=== PATIENT | female | born 1970 | race Caucasian/White ===

== ENCOUNTER → 2016-08-18 | Outpatient (CLI) | payer BC ==
[2016-08-18 10:10] VITALS: BP 132/84; PULSE 70; RESP 20; TEMP 98.5; BMI 43.4
[2016-08-18 11:20] LABS: CH 31.5; CHCM 32.9; HCT 44.6 % (34.0-46.0); HDW 2.27; HGB 14.6 gm/dL (11.4-16.0); MCH 31.5 pg (25.0-35.0); MCHC 32.7 g/dL (31.0-37.0); MCV 96.3 fL (80.0-100.0); Mean Platelet Volume 6.9; RBC 4.63 m/uL (3.80-5.40); RDW 13.2 % (11.5-15.5); WBC 8.2 k/uL (3.8-10.6)
[2016-08-18 11:42] LABS: ALT 31 U/L (9-52); AST 20 U/L (14-36); Alkaline Phosphatase 66 U/L (38-126); Anion Gap 12 mmol/L; Blood Urea Nitrogen 17 mg/dL (7-17); Calcium 9.2 mg/dL (8.4-10.2); Carbon Dioxide 21 mmol/L (22-30); Chloride 107 mmol/L (98-107); Cholesterol 178 mg/dL (<200); Glucose 93 mg/dL (74-99); HDL Cholesterol 56 mg/dL (40-60); Iron 66 ug/dL (37-170); Non-African American GFR(MDRD) >60 (>60 ml/min/1.73 sqM); Potassium 4.7 mmol/L (3.5-5.1); Sodium 140 mmol/L (137-145); Total Bilirubin 0.5 mg/dL (0.2-1.3); Total Protein 7.2 g/dL (6.3-8.2); Triglycerides 170 mg/dL (<150)
[2016-08-18 11:54] LABS: % Iron Saturation 18.2 % (20-50); Total Iron Binding Capacity 362 ug/dL (265-497)
[2016-08-18 12:44] LABS: Vitamin B12 517 pg/mL (239-931)
[2016-08-18 13:17] LABS: Hemoglobin A1C 5.4 % (4.2-6.1)
[2016-08-22 06:05] LABS: Anabasine Urine <2.0 ng/mL (<2.0)
--- NOTE | 2016-09-23 20:42 | P.PN ---
Progress Note - Text DATE OF CONSULTATION: 08/18/2016 CHIEF COMPLAINT: Initial bariatric assessment. HISTORY OF PRESENT ILLNESS: Shabnam Rea is a 45-year-old female who presents for initial bariatric assessment. She reports a family history of morbid obesity whereby her sister actually had a gastric bypass and did extremely well. She reports heartburn for which she takes Zantac at least twice daily. She tried weight loss options including Adipex, Garcinia, [id number] medications including low gregg restriction diets with minimal success. The most she has been able to lose is 20 pounds. Her highest personal weight is 305 pounds. Her goal weight is 130 pounds. Her primary concern ideally is to get under 200 pounds. She denies any family history of esophageal or stomach cancer. No reports of lupus or Crohn's disease. She does have a food allergy for which she sees an town clerk. She has obstructive sleep apnea which has been treated. She denies any active issues known to her in terms of diabetes. She denies any troubles with swallowing. The last time she had an upper endoscopy was many years ago. She has occasional constipation including diarrhea. Denies any blood clots in self or family. She denies any abdominal pain. She has a history of active smoking. Secondary to her morbid obesity she has developed osteoarthritis of the left knee including the lower back. She also reports menstrual irregularity. Now she presents for further evaluation and management. PAST MEDICAL HISTORY: 1. Morbid obesity. 2. Osteoarthritis of the knees. 3. Osteoarthritis of the hips. 4. Obstructive sleep apnea. 5. Asthma. 6. Gastroesophageal reflux disease. PAST SURGICAL HISTORY: 1. . 2. Cholecystectomy. 3. Upper endoscopy. MEDICATIONS: 1. Benadryl. 2. Avapro. 3. Melatonin. 4. Advair disk. 5. Singulair. 6. Ventolin inhaler. ALLERGIES: VANCOMYCIN gives her a rash and hives. SOCIAL HISTORY: She is an active smoker. FAMILY HISTORY: Pertinent for morbid obesity. No reports of ulcerative colitis, Crohn's disease, lupus or stomach or esophageal cancer. REVIEW OF SYSTEMS: CONSTITUTIONAL: [place] body weight of 144 pounds. For a height of 5 feet 4-3/4 she comes in weighing 259 pounds. Her highest weight was 305 pounds. She is 115 pounds overweight. Body mass index has been reduced from 51.3 down to 43.5. HEENT: Denies any troubles with vision or hearing. No reports of active dysphagia. ENDOCRINE: No reports of diabetes or thyroid disorder. CARDIOVASCULAR: No reports of recent chest pain, palpitations or heart attack. RESPIRATORY: Has obstructive sleep apnea. No reports of pulmonary embolism or pneumonia. GASTROINTESTINAL: Has gastroesophageal reflux disease. Denies diarrhea, constipation. MUSCULOSKELETAL: Osteoarthritis of the lower back including bilateral hips and knees. NEURO: No reports of stroke or seizure disorders. PSYCH: No reports of suicidal ideation. No reports of depression. HEMATOLOGIC: Denies any easy bruising or bleeding. PHYSICAL EXAM: VITAL SIGNS: 98.5, 70, 20, 132/84, 5 foot 4 3/4 inch, 259 pounds. Body mass index 43.5. GENERAL: Well-developed, pleasant female in no acute distress. HEENT: No sclerae icterus. Extraocular movements grossly intact. Moist buccal mucosa. NECK: Supple without lymphadenopathy. CHEST: Nonlabored respirations with equal breath excursions. CARDIOVASCULAR: Regular rate and rhythm. ABDOMEN: Protuberant, soft, nontender, nondistended. MUSCULOSKELETAL: No clubbing, cyanosis, or edema. NEURO: No focal or lateralizing signs. Cranial nerves II through XII grossly within normal limits. PSYCH: Appropriate affect. Alert and oriented to person, place, and time. LABS: Hemoglobin normal at 14.6. Carbon dioxide low at 21. Creatinine normal. Hemoglobin A1c normal at 5.4%. Percent iron saturation is low at 18.2%. Triglycerides elevated at 170. Vitamin D is low at 18.4. ASSESSMENT: 1. Morbid obesity due to excess calories. 2. Body mass index reduced and 51.3 down to 43.5. 3. Dietary surveillance and counseling. 4. Gastroesophageal reflux disease. 5. Family history of morbid obesity. 6. Osteoarthritis of the left knee. 7. Osteoarthritis of the lower back. 8. Obstructive sleep apnea, untreated. 9. Multiple food allergies. 10. Vitamin D deficiency. 11. Hypertriglyceridemia. PLAN: 1. She has untreated obstructive sleep apnea for which evaluation by the sleep center is advisable. 2. Per insurance guidelines, we had reviewed that she will need a 6 month medical supervised weight loss. 3. She is an active smoker and smoking cessation counseling was reviewed for at least 3 minutes. Alternatives such as patches and gums may be of benefit; however, she will need complete nicotine abstinence. 4. She has completed bariatric metabolic panel. 5. Vitamin D correction using 50,000 units weekly dose. 6. An upper endoscopy for further evaluation and management is needed for her reflux disease. 7. Psych assessment per insurance guidelines. 8. Medical risk assessment per insurance guidelines. 9. Will also need EKG given the risk of the procedure. Thank you for this kind consultation.
== END | disposition home or self-care (01) ==
LOC: BARWHC3 09:30
PROVIDERS: ATTEND Surgery Plastic and Reconstructive Surgery
DX: Z01.818 Encounter for other preprocedural examination (principal); E66.01 Morbid (severe) obesity due to excess calories; Z68.41 Body mass index [BMI] 40.0-44.9, adult; K21.9 Gastro-esophageal reflux disease without esophagitis; M17.12 Unilateral primary osteoarthritis, left knee; M47.896 Other spondylosis, lumbar region; Z88.1 Allergy status to other antibiotic agents; F17.200 Nicotine dependence, unspecified, uncomplicated; Z91.02 Food additives allergy status; E55.9 Vitamin D deficiency, unspecified; E78.1 Pure hyperglyceridemia
CPT/HCPCS: 36415; 80053; 80061; 80323; 82306; 82607; 82728; 82746; 83036; 83540; 83550; 84425; 84443; 85027; 99201

== ENCOUNTER → 2016-09-13 | Outpatient (CLI) | payer BC ==
--- NOTE | 2016-09-13 21:13 | CONS ---
DATE OF CONSULTATION: REASON FOR CONSULTATION: Sleep apnea. This patient is a 45-year-old obese female patient who is having trouble sleeping, with excessive tiredness and sleepiness during the day. She goes to bed around midnight and it sometimes takes her up to 2 hours to fall asleep, and she has to get up at 6:40 a.m. in the morning to drive her kids to school. She does not take any naps during the day, although she feels very tired and sleepy. 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 On weekdays she gets off work between 3 and 6 p.m. On weekends she gets off work between 10 and 11 p.m. She is obese. She is trying to lose weight. She has already lost around 50 pounds; however, she is interested in bariatric surgery and she is under the care of Dr. Chica Reeves. Her blood pressure is noted to be elevated. She snores, but she has not been told that she stops breathing. She occasionally sleeptalks. She wakes up with a dry mouth. No grinding of the teeth. No nocturia. No restlessness in her lower extremities. Current Baldwin score is 16. PAST MEDICAL HISTORY: 1. Obesity. 2. Hypertension. 3. Bronchial asthma. 4. Environmental allergies. 5. Osteoarthritis. PAST SURGICAL HISTORY: None. DRUG ALLERGIES: VANCOMYCIN. Outpatient medication list includes: 1. Ailin-D. 2. Singulair. 3. Advair. 4. Motrin. 5. Benadryl. 6. Flonase. 7. Melatonin. 8. Tylenol. SOCIAL HISTORY: The patient is a nonsmoker. No history of alcoholism. No history of IV drugs. OCCUPATIONAL HISTORY: Works for [employer]. FAMILY HISTORY: Positive for hypertension and heart problems. Negative for any sleep breathing disorder. REVIEW OF SYSTEMS: Twelve-point review of systems was done. Positive findings were all mentioned above in the history of present illness. Of significance is the absence of any anxiety, panic, depression, heartburn, teeth grinding, nocturnal seizures. No nocturnal chest pain, shortness of breath or any other complaints. BP is 153/100, pulse 76, respiration 16. Temperature is 98.1. Saturation is 97% on room air. Weight is 258. Height is 5 feet 5 inches. BMI is 42.9. GENERAL APPEARANCE: Calm, comfortable. HEENT: Negative for JVD. No goiter or neck masses. Mallampati class I. LUNGS: Clear to auscultation. HEART: Sounds are regular rate and rhythm. Normal S1, S2. No S3. No S4. No murmurs. ABDOMEN: Soft, nontender. No organomegaly. EXTREMITIES: No edema. No cyanosis or clubbing. IMPRESSION: 1. Obstructive sleep apnea suspected, under investigation. My overall suspicion is quite low. In fact, I think there may be a component of insomnia in this patient. 2. Obesity; body mass index of 42.9. 3. Hypertension. 4. Bronchial asthma. 5. Environmental allergies. 6. Osteoarthritis. PLAN: 1. Implement good sleep hygiene measures. 2. Encourage further weight loss. 3. Proceed with a screening polysomnogram, looking for obstructive sleep apnea. 4. Note that the patient's blood pressure is quite elevated. I asked her to stop the Ailin-D and use plain Ailin if possible; and contact primary care physician for tighter blood pressure control. 5. Will continue following the patient after the sleep study and make further recommendations based on her progress.
== END | disposition home or self-care (01) ==
LOC: SLEEP 13:01
PROVIDERS: ATTEND Internal Medicine Critical Care Medicine
DX: G47.30 Sleep apnea, unspecified (principal); I10 Essential (primary) hypertension; E66.9 Obesity, unspecified; J45.909 Unspecified asthma, uncomplicated; M19.90 Unspecified osteoarthritis, unspecified site; Z68.41 Body mass index [BMI] 40.0-44.9, adult; Z88.8 Allergy status to other drugs, medicaments and biological substances; Z79.51 Long term (current) use of inhaled steroids; Z79.1 Long term (current) use of non-steroidal anti-inflammatories (NSAID); Z79.899 Other long term (current) drug therapy
CPT/HCPCS: 99211

== ENCOUNTER 2016-09-14 08:34 | Day surgery (SDC) | payer BC ==
[2016-09-12 11:13] VITALS: BMI 42.4
--- NOTE | 2016-09-14 07:55 | P.GSHP ---
History of Present Illness H&P Date: 09/14/16 CHIEF COMPLAINT: GERD HISTORY OF PRESENT ILLNESS: The patient is a 45-year-old female who presents reports gastroesophageal reflux disease. Upper endoscopy was offered for further evaluation and management. PAST MEDICAL HISTORY: Please see list. PAST SURGICAL HISTORY: Please see list. MEDICATIONS: Please see list. ALLERGIES: Please see list. SOCIAL HISTORY: No illicit drug use FAMILY HISTORY: No reports of Crohn disease or ulcerative colitis. REVIEW OF ORGAN SYSTEMS: CONSTITUTIONAL: No reports of fevers or chills. GI: Denies any blood in stools or constipation. PHYSICAL EXAM: VITAL SIGNS: Stable GENERAL: Well-developed and pleasant in no acute distress. HEENT: No scleral icterus. Extraocular movements grossly intact. Moist buccal mucosa. NECK: Supple without lymphadenopathy. CHEST: Unlabored respirations. Equal bilateral excursions. CARDIOVASCULAR: Regular rate and rhythm. Distal 2+ pulses. ABDOMEN: Soft, nondistended. MUSCULOSKELETAL: No clubbing, cyanosis, or edema. ASSESSMENT: 1. Gastroesophageal reflux disease PLAN: 1. Recommend proceeding with an upper endoscopy Past Medical History Past Medical History: Asthma, GERD/Reflux, Hypertension, Skin Disorder Additional Past Medical History / Comment(s): hx ulcers, constipation, arthritis , psoriasis, History of Any Multi-Drug Resistant Organisms: Unobtainable Past Surgical History: Section, Cholecystectomy Past Anesthesia/Blood Transfusion Reactions: Motion Sickness Past Psychological History: No Psychological Hx Reported Smoking Status: Current every day smoker Past Alcohol Use History: Occasional Additional Past Alcohol Use History / Comment(s): has smoked occationally 16 yrs , started smoking age 17, smoked regularly for about 8 yrs Past Drug Use History: None Reported - Past Family History Mother Family Medical History: No Reported History Medications and Allergies Home Medications Medication Instructions Recorded Confirmed Type Albuterol Inhaler [Ventolin Hfa 1 puff INHALATION DIRECTED 08/18/16 09/12/16 History Inhaler] Ibuprofen [Advil] 200 mg PO DIRECTED PRN 08/18/16 09/12/16 History Montelukast [Singulair] 1 tab PO DAILY 08/18/16 09/12/16 History diphenhydrAMINE [Benadryl] 25 mg PO HS 08/18/16 09/12/16 History Advair Disk(Dose Unknown) 1 applicate IH BID PRN 09/12/16 09/12/16 History Fexofenadine/Pseudoephedrine 1 each PO DAILY 09/12/16 09/12/16 History [Ailin-D 12 Hour Tablet] Allergies Allergy/AdvReac Type Severity Reaction Status Date / Time vancomycin Allergy Severe Rash/Hives Unverified 09/12/16 11:03
[~2016-09-14 08:34] MED LIST: LACTATED RINGERS 1,000 ML IV SCH; LIDOCAINE 1% 20 ML VIAL (10MG/ML) FOR IV START INTRADERMA PRN
[2016-09-14 08:55] VITALS: RESP 18; TEMP 98.1
[2016-09-14] MEDS ORDERED: PROPOFOL 10 MG/ML 20 ML VIAL IV ONE (09:30)
[2016-09-14] MEDS ORDERED: LIDOCAINE 1% INJ 10MG/ML (20 ML MDV) ONE (09:30)
--- NOTE | 2016-09-14 09:53 | P.PCN ---
Date of Procedure: 09/14/16 Description of Procedure: PREOPERATIVE DIAGNOSIS: Gastroesophageal reflux disease. POSTOPERATIVE DIAGNOSIS: Gastroesophageal reflux disease. Chronic gastritis OPERATION: Esophagogastroduodenoscopy with biopsies along antrum. SURGEON: Chica Reeves MD ANESTHESIA: MAC. INDICATIONS: The patient is a 45-year-old female who presents with a history of gastroesophageal reflux disease. Benefits and risks of the procedure were described. Informed consent was obtained. DESCRIPTION: The patient was brought into the endoscopy suite and laid in the left lateral decubitus position. An Olympus gastroscope was passed along the posterior oropharynx down to the distal esophagus where the squamocolumnar junction was encountered at 37 cm from the incisors. The stomach was entered and minimal bile reflux was found. Additional findings are listed below. Biopsies with cold forceps were obtained of the antrum. The first through third portion of the duodenum was examined and unremarkable. Retroflexion of the scope confirmed Hill grade 3 lower esophageal valve. The squamocolumnar junction demostrated mild LA grade A erosive esophagitis. The stomach was desufflated. The patient tolerated the procedure well. FINDINGS: Squamocolumnar junction 37 cm from the incisors. Diaphragmatic hiatus at 37 cm from the incisors Hill grade 3 lower esophageal valve. Chronic gastritis along the antrum. No active duodenitis. RECOMMENDATIONS: Further recommendations pending results of pathology report. Upper endoscopy as needed. Plan - Discharge Summary Discharge Medication List Albuterol Inhaler [Ventolin Hfa Inhaler] 1 puff INHALATION DIRECTED 08/18/16 [History] Ibuprofen [Advil] 200 mg PO DIRECTED PRN 08/18/16 [History] Montelukast [Singulair] 1 tab PO DAILY 08/18/16 [History] diphenhydrAMINE [Benadryl] 25 mg PO HS 08/18/16 [History] Advair Disk(Dose Unknown) 1 applicate IH BID PRN 09/12/16 [History] Fexofenadine/Pseudoephedrine [Ailin-D 12 Hour Tablet] 1 each PO DAILY [History]
[2016-09-14 09:59] VITALS: BP 153/94; PULSE 66
== END 2016-09-14 10:18 | disposition home or self-care (01) ==
LOC: ORWHC2ENDO 08:34
PROVIDERS: ATTEND Surgery Plastic and Reconstructive Surgery
DX: K29.50 Unspecified chronic gastritis without bleeding (principal); K22.10 Ulcer of esophagus without bleeding; I10 Essential (primary) hypertension; F17.200 Nicotine dependence, unspecified, uncomplicated; E66.01 Morbid (severe) obesity due to excess calories; Z68.41 Body mass index [BMI] 40.0-44.9, adult; J45.909 Unspecified asthma, uncomplicated; Z79.899 Other long term (current) drug therapy; Z88.1 Allergy status to other antibiotic agents
CPT/HCPCS: 88305; 88342; 43239; J2001; J2704

== ENCOUNTER → 2022-03-09 | Outpatient (CLI) | payer BC | END | disposition home or self-care (01) | LOC: LABWHC1 11:35 | PROVIDERS: ATTEND Orthopaedic Surgery | DX: M17.0 Bilateral primary osteoarthritis of knee (principal); M21.161 Varus deformity, not elsewhere classified, right knee; M21.162 Varus deformity, not elsewhere classified, left knee | CPT/HCPCS: 36415 ==

== ENCOUNTER → 2023-05-26 | Outpatient (CLI) | payer BC ==
--- NOTE | 2023-05-26 09:17 | CTL ---
EXAMINATION TYPE: CT Low Dose Lung DATE OF EXAM ORDERED: 05/26/2023 HISTORY: Long-term tobacco use. Lung cancer screening CT DLP: 130.[address] CTDI: 3.5 mGy Automated exposure control for dose reduction was used. SCREENING VISIT: Baseline COMPARISON: None TECHNIQUE: Low dose computed tomography scan was performed through the chest at 1 mm thick sections a nd reconstructed images in multiple planes at 1 mm and [address] DIAGNOSTIC QUALITY: Satisfactory FINDINGS: LUNG NODULES: None. LUNGS: COPD: Severity: None Fibrosis: Severity: None Lymph nodes: None Other findings: None RIGHT PLEURAL SPACE: Effusion: None Calcification: None Thickening: None Pneumothorax: None LEFT PLEURAL SPACE: Effusion: None Calcification: None Thickening: None Pneumothorax: None HEART: Heart Size: Normal Coronary Calcification: Tiny Pericardial Effusion: None OTHER FINDINGS: Upper abdomen: Cholecystectomy clips are present. A few colonic diverticula near the splenic flexure are seen. Bony thorax: Mild multilevel spurring Supraclavicular region: None Other: None IMPRESSION: No suspicious nodules CT LUNG RAD AND CT CHEST RECOMMENDATION: Lung-Rad 1 Negative: Continue annual screening with LDCT in 12 months. S Modifier (other clinically significant findings): None
== END | disposition home or self-care (01) ==
LOC: RADCTMAIN 08:10
PROVIDERS: ATTEND Family Medicine
DX: Z12.2 Encounter for screening for malignant neoplasm of respiratory organs (principal); Z87.891 Personal history of nicotine dependence
CPT/HCPCS: 71271

== ENCOUNTER 2024-11-01 19:45 | Emergency (ER) | payer BC ==
--- NOTE | 2024-11-01 20:08 | ED ---
Upper Extremity HPI - General Source: patient, RN notes reviewed Mode of arrival: ambulatory Limitations: no limitations <Harvey Birmingham - Last Filed: 11/01/24 20:06> <Fitz Kelley - Last Filed: 11/04/24 20:19> - General Stated Complaint: Fall, right shoulder pain Time Seen by Provider: 11/01/24 20:03 - History of Present Illness Initial Comments: Quick note: This is a 53-year-old female presenting for right shoulder injury following a fall occurring around 1900 this evening. Patient states she was running in the rain when she suffered a trip and fall, striking her right shoulder against a toy on the ground and also scraping her left knee. Patient denies striking head, loss of consciousness, headache, neck pain. Patient states pain is diffuse across right upper extremity, chest and back. Patient denies increased pain with inhalation or dyspnea. Endorses use of Tylenol and naproxen prior to arrival with good pain control at this time. (Harvey Birmingham) 53-year-old female presenting chief complaint of right shoulder injury. She fell onto a toy on the ground hitting her right shoulder. She also scraped her left knee. Last tetanus was 10 years ago. No head injury. She admits to pain in the shoulder that is worse with range of motion. (Fitz Kelley) - Related Data Home Medications Medication Instructions Recorded Confirmed Albuterol Inhaler [Ventolin Hfa 1 puff INHALATION DIRECTED 08/18/16 09/12/16 Inhaler] Ibuprofen [Advil] 200 mg PO DIRECTED PRN 08/18/16 09/12/16 Montelukast [Singulair] 1 tab PO DAILY 08/18/16 09/12/16 diphenhydrAMINE [Benadryl] 25 mg PO HS 08/18/16 09/12/16 Advair Disk(Dose Unknown) 1 applicate IH BID PRN 09/12/16 09/12/16 Fexofenadine/Pseudoephedrine 1 each PO DAILY 09/12/16 09/12/16 [Ailin-D 12 Hour Tablet] Allergies Allergy/AdvReac Type Severity Reaction Status Date / Time vancomycin Allergy Severe Rash/Hives Verified 11/01/24 20:43 Review of Systems ROS Other: All systems not noted in ROS Statement are negative. <Harvey Birmingham - Last Filed: 11/01/24 20:06> ROS Other: All systems not noted in ROS Statement are negative. <WarrenDonavonscott - Last Filed: 11/04/24 20:19> ROS Statement: Those systems with pertinent positive or pertinent negative responses have been documented in the HPI. Past Medical History Past Medical History: Asthma, GERD/Reflux, Hypertension, Skin Disorder Additional Past Medical History / Comment(s): hx ulcers, constipation, arthritis, psoriasis, History of Any Multi-Drug Resistant Organisms: Unobtainable Past Surgical History: Section, Cholecystectomy Past Anesthesia/Blood Transfusion Reactions: Motion Sickness Past Psychological History: No Psychological Hx Reported Past Alcohol Use History: Occasional Additional Past Alcohol Use History / Comment(s): has smoked occationally 16 yrs, started smoking age 17, smoked regularly for about 8 yrs Past Drug Use History: None Reported - Past Family History Mother Family Medical History: No Reported History <Harvey Birmingham - Last Filed: 11/01/24 20:06> General Exam <Harvey Birmingham - Last Filed: 11/01/24 20:06> Limitations: no limitations General appearance: alert, in no apparent distress Head exam: Present: atraumatic, normocephalic, normal inspection Eye exam: Present: normal appearance, EOMI Neck exam: Present: normal inspection. Absent: meningismus Respiratory exam: Absent: respiratory distress, stridor Cardiovascular Exam: Present: regular rate Right Shoulder Exam: Present: normal inspection, tenderness. Absent: full ROM Vascular: Absent: vascular compromise Neurological exam: Present: alert, oriented X3 Psychiatric exam: Present: normal affect, normal mood Skin exam: Present: warm, dry, normal color <KelleyDonavonscott - Last Filed: 11/04/24 20:19> - General Exam Comments Initial Comments: Visual Physical Exam Vital signs reviewed General: Well-appearing, nontoxic, no acute distress. Head: Normocephalic, atraumatic Eyes: PERRLA, EOMI ENT: Airway patent Chest: Nonlabored breathing Skin: No visual rash, normal skin tone Neuro: Alert and oriented 3 Musculoskeletal: Patient RUE in sling with abrasion and ecchymosis noted over right lateral shoulder. Road rash/abrasion noted on left knee without ecchymosis or foreign body (Harvey Birmingham) Course Vital Signs 11/01/24 11/01/24 20:40 21:40 Temperature 97.7 F 98.0 F Pulse Rate 67 63 Respiratory 16 16 Rate Blood Pressure 166/96 138/86 O2 Sat by Pulse 99 96 Oximetry Medical Decision Making <ValenciaHarvey - Last Filed: 11/01/24 20:06> <Fitz Kelley - Last Filed: 11/04/24 20:19> - Medical Decision Making I completed the quick note portion of this chart signed KISHOR Mora (Harvey Birmingham) Was pt. sent in by a medical professional or institution ([facility], [facility], urgent care, hospital, or prison...) When possible be specific @ -No Did you speak to anyone other than the patient for history (EMS, parent, family, police, friend...)? What history was obtained from this source @ -No Did you review nursing and triage notes (agree or disagree)? Why? @ -I reviewed and agree with nursing and triage notes Were old charts reviewed (outside hosp., previous admission, EMS record, old EKG, old radiological studies, urgent care reports/EKG's, prison records)? Report findings @ -No old charts were reviewed Differential Diagnosis (chest pain, altered mental status, abdominal pain women, abdominal pain men, vaginal bleeding, weakness, fever, dyspnea, syncope, headache, dizziness, GI bleed, back pain, seizure, CVA, palpatations, mental health, musculoskeletal)? @ -Differential Musculoskeletal Muscular strain, contusion, ligament sprain, fracture, arthritis, septic arthritis, bursitis, cellulitis, muscle spasm, nerve compression, DVT, arterial occlusion, herpes zoster, electrolyte abnormality, tumor.... This is not meant to be in all inclusive list EKG interpreted by me (3pts min.). @ -As above X-rays interpreted by me (1pt min.). @ -X-ray negative for fracture or dislocation CT interpreted by me (1pt min.). @ -None done U/S interpreted by me (1pt. min.). @ -None done What testing was considered but not performed or refused? (CT, X-rays, U/S, labs)? Why? @ -None What meds were considered but not given or refused? Why? @ -None Did you discuss the management of the patient with other professionals (professionals i.e. DrAura, PA, [facility], lab, RT, psych nurse, social work manager, tdp displays analyst, teacher, medical information officer, case assembler)? Give summary @ -No Was smoking cessation discussed for >3mins.? @ -No Was critical care preformed (if so, how long)? @ -No Were there social determinants of health that impacted care today? How? (Homelessness, low income, unemployed, alcoholism, drug addiction, transportation, low edu. Level, literacy, decrease access to med. care, fpc, r ehab)? @ -No Was there de-escalation of care discussed even if they declined (Discuss DNR or withdrawal of care, Hospice)? DNR status @ -No What co-morbidities impacted this encounter? (DM, HTN, Smoking, COPD, CAD, Cancer, CVA, ARF, Chemo, Hep., AIDS, mental health diagnosis, sleep apnea, morbid obesity)? @ -None Was patient admitted / discharged? Hospital course, mention meds given and route, prescriptions, significant lab abnormalities, going to OR and other pertinent info. @ -53-year-old female presenting with chief complaint of right shoulder injury. Neurovascularly intact. Tetanus is updated. X-ray negative for fracture or dislocation. Patient has a sling from home that she will continue using. She is educated on supportive management at home. Provided with orthopedic follow- up. Follow-up with PCP. Report back to ER with any new or worsening symptoms. Discussed return parameters and answered all questions. Patient conveyed verbal understanding and agreed to the plan. I discussed this case in detail with my attending Dr. Vargas Undiagnosed new problem with uncertain prognosis? @ -No Drug Therapy requiring intensive monitoring for toxicity (Heparin, Nitro, Insu dexter, Cardizem)? @ -No Were any procedures done? @ -No Diagnosis/symptom? @ -Shoulder sprain Acute, or Chronic, or Acute on Chronic? @ -Acute Uncomplicated (without systemic symptoms) or Complicated (systemic symptoms)? @ -Uncomplicated Side effects of treatment? @ -No Exacerbation, Progression, or Severe Exacerbation? @ -No Poses a threat to life or bodily function? How? (Chest pain, USA, DC, pneumonia, PE, COPD, DKA, ARF, appy, cholecystitis, CVA, Diverticulitis, Homicidal, Suicidal, threat to staff... and all critical care pts) @ -Unlikely (Fitz Kelley) Disposition <Harvey Birmingham - Last Filed: 11/01/24 20:06> Is patient prescribed a controlled substance at d/c from ED?: No Time of Disposition: 21:29 <Fitz Kelley - Last Filed: 11/04/24 20:19> Clinical Impression: Shoulder injury Disposition: HOME SELF-CARE Condition: Good Instructions (If sedation given, give patient instructions): Shoulder Sprain (ED), Shoulder Pain (ED) Additional Instructions: Follow-up with PCP. Report back to ER with any new or worsening symptoms. Utilize the sling while recovering. Motrin Tylenol as needed for pain. Referrals: Genna Yanez MD [Primary Care Provider] - 1-2 days Amilcar Leyva MD [Medical Doctor] - 1-2 days
[2024-11-01 20:43] VITALS: RESP 16
--- NOTE | 2024-11-01 20:51 | XR ---
EXAMINATION TYPE: XR shoulder complete RT, XR scapula RT, XR humerus RT DATE OF EXAM: 11/01/2024 8:44 PM COMPARISON: None. CLINICAL INDICATION: Female, 53 years old with history of Fall onto right shoulder; PHH, pain TECHNIQUE: XR shoulder complete RT, XR scapula RT, XR humerus RT; examined in AP, internally rotated and scapular Y projections. FINDINGS: Soft tissue swelling/edema adjacent to the right shoulder. No acute fracture or dislocation. Scleroti c changes near the greater tuberosity likely reflecting sequelae of chronic rotator cuff pathology. P artially visualized right lung appears clear. Moderate degenerative osteophytic changes of the acromi oclavicular joint and mild glenohumeral joint degenerative osteoarthritis. IMPRESSION: No acute fracture or dislocation. [facility], , 11/01/2024 8:49 PM
[2024-11-01] MEDS: DIPH,PERTUS(ACELL)TETVAC-LF 0.5 ML VIAL IM ONE (21:22)
[2024-11-01] MEDS: BACITRACIN OINT 1 EACH PACKET TOPICAL ONE (21:40)
[2024-11-01 21:44] VITALS: BP 138/86; PULSE 63; TEMP 98
== END 2024-11-01 21:51 | disposition home or self-care (01) ==
LOC: EC 19:45
DX: S43.401A Unspecified sprain of right shoulder joint, initial encounter (principal); Z88.1 Allergy status to other antibiotic agents; Z23 Encounter for immunization; W01.0XXA Fall on same level from slipping, tripping and stumbling without subsequent striking against object, initial encounter; Y93.02 Activity, running
CPT/HCPCS: 90471; 90715; 99283